=== PATIENT | male | born 1940 | race Caucasian/White ===

== ENCOUNTER → 2021-06-08 | Outpatient (CLI) | payer MEDICARE, OTHER ==
--- NOTE | 2021-06-08 16:55 | CARDNUC ---
[place] [address] CARDIAC NUCLEAR IMAGING REPORT Name: DOMINGA DIXON Room: [facility]#: [id number] Admission: 06/08/21 Attend Phys: Dudley Steel, Discharge: Date of : 44 Date of Service: 06/08/21 1655 Report #: [id number] THIS REPORT FOR: cc: Noah Castro MD, [place]ot L. MD Liston, Michael J. MD [facility] ~ APPROVED REPORT Study performed: 06/08/2021 09:12:06 Exam: Nuclear Stress Test Indication: Dyspnea Patient Location: Out-Patient Stress Nurse: Fatimah Martinez RN Ht: 5 ft 7 in Wt: 151 lbs BSA: 1.79 m2 BMI: 23.64 Medical History Medical History: CAD s/p stent Medications: atorvastatin, zetia, klor-con, xarelto, sotalol, maxaide Allergies: atorvastatin Cardiac Risk Factors: age, hyperlipidemia, hypertension Previous Cardiac Procedures: PCI Exercise History: Indeterminate Stress Test Details Stress Test: Pharmacologic stress testing performed using 0.4 mg of regadenoson per 5 mL given IV over 10 seconds. Reason for pharmacologic stress test: on saotalol. HR Resting HR: 49 bpm Max Heart Rate (APMHR): 141 bpm Max HR Achieved: 56 bpm Target HR (85% APMHR): 119 bpm % of APMHR: 39 Recovery HR: 63 bpm BP Resting BP: 177/83 mmHg Max BP: 144/72 mmHg ECG Resting ECG: [place] [address] CARDIAC NUCLEAR IMAGING REPORT Name: DOMINGA DIXON Room: [facility]#: [id number] Admission: 06/08/21 Attend Phys: Dudley Steel, Discharge: Date of : 44 Date of Service: 06/08/21 1655 Report #: [id number] Stress ECG: Sinus Rhythm ST Change: None Arrhythmia: None Recovery ECG: Sinus Rhythm Recovery ST Change: None Recovery Arrhythmia: None Clinical Reason for Termination: Completed protocol The patient tolerated Lexiscan infusion without significant cardiac symptoms. Stress ECG Conclusion Baseline twelve-lead EKG shows sinus rhythm with no significant ST segment or T wave abnormality. EKGs obtained during and post Lexiscan infusion show sinus rhythm with no significant ST segment changes when compared to baseline. There were no stress-induced arrhythmias. NM EXAM: Myocardial Perfusion REST/STRESS Imaging Protocol: Rest Tc-99m/Stress Tc-99m 1 day Resting Data Rest SPECT myocardial perfusion imaging was performed in supine position 30 minutes following the intravenous injection of 10.5 mCi of Tc-99m Sestamibi. Time of rest injection: 08:00 The images were gated to evaluate regional wall motion and calculate left ventricular ejection fraction. Administration Route: IV Administration Site: Right Hand Pharmacologic Stress Pharmacologic stress test was performed by injecting Regadenoson 0.4 mg IV push followed by the intravenous injection of 32.0 mCi of Tc-99m Sestamibi. Time of stress injection: 09:30 Administration Route: IV Administration Site: Right Hand Heart Rate at time of stress injection: 56 bpm. Gated Stress SPECT was performed 40 minutes after stress injection. The images were gated to evaluate regional wall motion and calculate left ventricular ejection fraction. Prone [place] [address] CARDIAC NUCLEAR IMAGING REPORT Name: DOMINGA DIXON Room: [facility]#: [id number] Admission: 06/08/21 Attend Phys: Dudley Steel, Discharge: Date of : 44 Date of Service: 06/08/21 1655 Report #: [id number] Study Quality Study: Good Artifact: No artifact Study Data At rest, the left ventricular ejection fraction was 65%.. Post stress, the left ventricular ejection was 66%.. TID = 1.00. Perfusion Perfusion images obtained at rest and post Lexiscan stress show uniform uptake of the radioisotope throughout the myocardium. There were no defects to suggest infarct or ischemia. Wall Motion Normal left ventricular wall motion. Nuclear Conclusion ECG Findings: negative for ischemia Clinical Findings: negative for ischemia Nuclear Findings: negative for ischemia Exercise Capacity: not assessed Left Ventricular Function: normal Risk Study: low Myocardial perfusion images show no defect to suggest infarct or ischemia. Left ventricular systolic function appears normal on gated studies. This is a low risk study. <Conclusion> Baseline twelve-lead EKG shows sinus rhythm with no significant ST segment or T wave abnormality. EKGs obtained during and post Lexiscan infusion show sinus rhythm with no significant ST segment changes when compared to baseline. There were no stress-induced arrhythmias. <ELECTRONICALLY SIGNED> By: Dudley Steel MD, FACC 06/08/21 1655 1655 1655 Dudley Steel MD, FACC /INF
== END ==
LOC: M.NUC 05-12 15:52
PROVIDERS: ATTEND Internal Medicine Cardiovascular Disease
DX: I25.10 Atherosclerotic heart disease of native coronary artery without angina pectoris (principal)